=== PATIENT | female | born 1980 | race Caucasian/White ===

== ENCOUNTER → 2018-03-05 | Outpatient (CLI) | payer BC ==
[~2018-03-05] MED LIST: None at this Time
[2018-03-05 09:47] LABS: BASOPHILS # (AUTO) 0.02 x10^3/uL (0-0.1); BASOPHILS % (AUTO) 0 % (0-1); EOSINOPHILS # (AUTO) 0.17 x10^3/uL (0-0.4); EOSINOPHILS % (AUTO) 3 % (1-7); LYMPHOCYTES # (AUTO) 1.59 x10^3/uL (1-3.4); LYMPHOCYTES % (AUTO) 28 % (22-44); MD NO; MEAN CORPUSCULAR HEMOGLOBIN 28.8 pg (27.0-34.8); MEAN CORPUSCULAR HGB CONC 33.2 g/dL (32.4-35.8); MEAN CORPUSCULAR VOLUME 86.6 fL (80-100); MEAN PLATELET VOLUME 8.6 fL (7.4-10.4); MONOCYTES # (AUTO) 0.47 x10^3/uL (0.2-0.8); MONOCYTES % (AUTO) 8 % (2-9); NEUTROPHILS # (AUTO) 3.47 x10^3/uL (1.8-6.8); NEUTROPHILS % (AUTO) 61 % (42-75); PLATELET COUNT 301 x10^3/uL (130-400); RED BLOOD COUNT 4.56 x10^6/uL (3.82-5.3); RED CELL DISTRIBUTION WIDTH 13.5 % (9.6-15.2)
[2018-03-05 09:58] LABS: INTERNATIONAL NORMALIZED RATIO 0.97 (0.93-1.1)
[2018-03-05 10:00] LABS: ALANINE AMINOTRANSFERASE 20 U/L (12-78); ALBUMIN 4.1 g/dL (3.4-5.0); ANION GAP 6 mmol/L (5-15); CALCIUM 8.6 mg/dL (8.5-10.1); CHLORIDE 107 mmol/L (98-107)
[2018-03-05 10:05] LABS: ALKALINE PHOSPHATASE 47 U/L (45-117); BILIRUBIN,TOTAL 0.6 mg/dL (0.2-1.0); TOTAL PROTEIN 7.7 g/dL (6.4-8.2)
== END | disposition home or self-care (01) ==
LOC: STAR 08:47
PROVIDERS: ATTEND Specialist
DX: Z01.818 Encounter for other preprocedural examination (principal); R19.00 Intra-abdominal and pelvic swelling, mass and lump, unspecified site
CPT/HCPCS: 36415; 80053; 84703; 85025; 85610; 85730

== ENCOUNTER 2018-03-12 09:29 | Day surgery (SDC) | payer BC ==
[~2018-03-12] VITALS: Ht 167.6 cm; Wt 57.6 kg
[~2018-03-12 09:29] MED LIST changes: +BUPIVACAINE/PF-EPI 0.5% 1:200K ONE
[2018-03-12] MEDS ORDERED: FENTANYL PF 250 MCG/5ML ONE (10:00)
[2018-03-12] MEDS ORDERED: MIDAZOLAM 1 MG/ML, 2ML ONE (10:00)
[2018-03-12] MEDS ORDERED: LACTATED RINGERS 1,000 ML IV SCH (10:07)
[2018-03-12] MEDS ORDERED: ACETAMINOPHEN 500 MG TABLET PO ONE (10:30)
[2018-03-12] MEDS ORDERED: SCOPOLAMINE PATCH, 1.5MG PATCH.TD72 TD ONE (10:30)
[2018-03-12] MEDS ORDERED: ONDANSETRON ODT 8 MG PO ONE (10:30)
[2018-03-12] MEDS ORDERED: GABAPENTIN 300 MG CAPSULE PO ONE (10:30)
[2018-03-12 10:37] VITALS: BP 111/76
[2018-03-12 10:42] LABS: HCG UR SG 1.005 (1.003-1.030)
[2018-03-12] MEDS ORDERED: LABETALOL 5MG/ML, 20ML IV PRN (11:00)
[2018-03-12] MEDS ORDERED: MIDAZOLAM 1 MG/ML, 2ML IV PRN (11:00)
[2018-03-12] MEDS ORDERED: ALBUTEROL/IPRATROPIUM 2.5MG/0.5MG, 3 ML NPPB PRN (11:00)
[2018-03-12] MEDS ORDERED: OXYcodone 5 MG/5 ML ORAL.SOL UDC PO PRN (11:00)
[2018-03-12] MEDS ORDERED: MEPERIDINE/PF 25MG/0.5ML IVPush PRN (11:00)
[2018-03-12] MEDS ORDERED: ONDANSETRON 2MG/ML, 2ML IV PRN (11:00)
[2018-03-12] MEDS ORDERED: EPHEDRINE 50 MG/ML, 1ML IM PRN (11:00)
[2018-03-12] MEDS ORDERED: PROMETHAZINE 25 MG SUPP PR PRN (11:00)
[2018-03-12] MEDS ORDERED: INTERCEED 3 X 4 INCH DRESSING ONE (12:22)
[2018-03-12] MEDS ORDERED: ROCURONIUM 10MG/ML,5ML ONE (12:32)
[2018-03-12] MEDS ORDERED: GLYCOPYRROLATE 0.2MG/1ML, 5ML ONE (12:32)
[2018-03-12] MEDS ORDERED: CEFAZOLIN 1,000 MG ONE (12:32)
[2018-03-12] MEDS ORDERED: PROPOFOL 10 MG/ML, 20ML ONE (12:32)
[2018-03-12] MEDS ORDERED: DEXAMETHASONE 4 MG/ML, 1ML ONE (12:32)
[2018-03-12] MEDS ORDERED: NEOSTIGMINE 1 MG/ML, 10ML ONE (12:32)
[2018-03-12] MEDS ORDERED: ONDANSETRON 2MG/ML, 2ML ONE (12:32)
[2018-03-12] MEDS ORDERED: FENTANYL PF 100 MCG/2ML ONE (13:02)
[2018-03-12] MEDS: FENTANYL PF 100 MCG/2ML IV PRN ×3 (13:04→13:19)
[2018-03-12] MEDS ORDERED: OXYcodone 5 MG/5 ML ORAL.SOL UDC ONE (13:09)
[2018-03-12] MEDS ORDERED: HYDROmorphone 2 MG/ML, 1ML ONE (13:21)
[2018-03-12] MEDS: HYDROmorphone 1 MG/ML, 1ML IV PRN ×2 (13:24→13:38)
[2018-03-12] MEDS ORDERED: KETOROLAC 30 MG/1 ML ONE (16:14)
[2018-03-12] MEDS ORDERED: OXYcodone/APAP 7.5/325MG TABLET PO PRN (16:30)
== END 2018-03-12 17:10 | disposition home or self-care (01) ==
LOC: OUT 09:29
PROVIDERS: ATTEND Specialist
DX: D27.1 Benign neoplasm of left ovary (principal); N83.8 Other noninflammatory disorders of ovary, fallopian tube and broad ligament; Z72.89 Other problems related to lifestyle
CPT/HCPCS: 36415; 58662; 81025; 86850; 86900; 88112; 88305; 88311; 88329; C1765; J0690; J1100; J1170; J1885; J2250; J2405; J2704; J2710; J3010; J3490; J7120; Q0162